=== PATIENT | male | born 1995 | race Caucasian/White ===

== ENCOUNTER 2017-04-25 21:30 | Emergency (ER) | payer BC ==
[~2017-04-25] VITALS: Ht 190.5 cm; Wt 118.3 kg
[2017-04-25 21:46] VITALS: TEMP 38.3; Ht 190.5 cm; Wt 118.3 kg
[2017-04-25] MEDS ORDERED: KETOROLAC TROMETHAMINE 30 MG/ML VIAL IV STA (23:03)
[2017-04-25] MEDS ORDERED: ACETAMINOPHEN IV 1,000 MG in EMPTY BAG 0 ML IV ONE (23:15)
[2017-04-25] MEDS ORDERED: ALBUT/IPRATROP 3MG/0.5MG NEB 3 ML VIAL INH ONE (23:15)
[2017-04-25] MEDS ORDERED: SODIUM CHLORIDE 0.9% 1000ML 1,000 ML IV ONE (23:15)
[2017-04-25] MEDS ORDERED: ACETAMINOPHEN 1000 MG/100 ML IV IV ONE (23:17)
[2017-04-25 23:41] LABS: BASO % 0.7 %; BASO ABS # 0.04 K/uL (0-0.2); EOS % 0.9 %; EOS ABS # 0.05 K/uL (0-0.5); HEMOGLOBIN 14.7 g/dL (14.0-18.0); IG# 0.01 K/uL (0.00-0.02); LYMPH % 16.8 %; LYMPH ABS # 0.97 K/uL (1.2-3.4); MEAN CELL VOLUME 86.1 fL (80-100); MEAN CORPUSCULAR HEMOGLOBIN 28.8 pg (25-34); MEAN CORPUSCULAR HGB CONC 33.4 g/dl (32-36); MONO % 15.4 %; MONO ABS # 0.89 K/uL (0.11-0.59); NEUT ABS # 3.81 K/uL (1.4-6.5); PLATELET COUNT 221 K/uL (130-400); WHITE BLOOD COUNT 5.77 K/uL (4.8-10.8)
[2017-04-25 23:48] LABS: ALBUMIN 4.1 gm/dl (3.4-5.0); CALCIUM 9.5 mg/dl (8.5-10.1); CREATININE 1.24 mg/dl (0.60-1.40); POTASSIUM 3.8 mmol/L (3.5-5.1)
[2017-04-25 23:51] LABS: TOTAL PROTEIN 7.9 gm/dl (6.4-8.2)
[2017-04-26 00:07] LABS: INFLUENZA B ANTIGEN Neg for Influ B (NEG)
[2017-04-26] MEDS ORDERED: OSELTAMIVIR PHOSPHATE 75 MG CAP PO STA (00:20)
[2017-04-26] MEDS ORDERED: AMPH20CA3 PO (00:43)
[2017-04-26 02:01] VITALS: BP 122/70; PULSE 76; O2SAT 98
--- NOTE | 2017-04-26 06:50 | DIAGNOSTIC IMAGING REPORT ---
CHEST 2 VIEWS ROUTINE CLINICAL HISTORY: Fever, cough, flulike symptoms COMPARISON STUDY: No previous studies for comparison. FINDINGS: The cardiac and mediastinal contours are normal. There is no evidence of focal pulmonary consolidation. There is no evidence of failure. No pleural effusions are visualized.[ IMPRESSION: No active disease in the chest. Electronically signed by: Alex Rodriguez M.D. 04/26/2017 6:49 AM Dictated Date/Time: 04/26/2017 6:49 AM
--- NOTE | 2017-04-27 05:23 | EMERGENCY ROOM VISIT NOTE ---
History First contact with patient: 22:54 Chief Complaint: FLU LIKE SX Stated Complaint: TROUBLE BREATHING, FLU SYMPTOMS, CHEST PAIN History of Present Illness The patient is a 22 year old male who presents to the Emergency Room with complaints of fever, cough, and difficulty breathing that started roughly 2 days ago. Patient does not have known exposure to disease. He considers himself otherwise usually healthy. He has been eating and drinking as normal. He rates his discomfort a 6/10 that does not improve much with [id number] analgesics. Review of Systems More than 10 systems were reviewed and otherwise negative with the exception of history of present illness. Past Medical/Surgical History No chronic medical disease Family History No pertinent family history Social History Smoking Status: Current Some Day Smoker Current/Historical Medications Scheduled Amphetamine-Dextroamphetamine 20MG (Adderall Xr 20MG), 20 MG PO QAM Physical Exam Vital Signs Date Time Temp Pulse Resp B/P (MAP) Pulse Ox O2 Delivery O2 Flow Rate FiO2 04/26/17 02:01 76 16 122/70 98 04/25/17 23:50 90 18 130/79 94 Room Air 04/25/17 21:46 38.3 115 20 130/85 97 Room Air Physical Exam VITALS: Vitals are noted on the nurse's note and reviewed by myself. Vital signs stable. GENERAL: Ill-appearing male who is cooperative with the examination. HEAD: Normocephalic atraumatic. EARS: External ear normal. External auditory canals clear, tympanic membranes pearly calderon without erythema or effusion bilaterally. EYES: Pupils equal round and reactive to light and accommodation. Conjunctivae without injection, sclerae without icterus. Extraocular movements intact. NOSE: Patent, turbinates without inflammation or discharge. MOUTH: Mucous membranes moist. Tonsils are not enlarged. Pharynx without erythema, blood, or exudate. Uvula midline. Airway patent. NECK: Supple without nuchal rigidity. No lymphadenopathy. No thyromegaly. Cervical spine is nontender. HEART: Regular rate and rhythm without murmurs gallops or rubs. LUNGS: Clear to auscultation bilaterally without wheezes, rales or rhonchi. No retractions or accessory muscle use. ABDOMEN: Positive normal bowel sounds x 4. Soft, nontender, without masses or organomegaly. No guarding or rebound tenderness. Medical Decision & Procedures ER Provider Diagnostic Interpretation: CHEST 2 VIEWS ROUTINE CLINICAL HISTORY: Fever, cough, flulike symptoms COMPARISON STUDY: No previous studies for comparison. FINDINGS: The cardiac and mediastinal contours are normal. There is no evidence of focal pulmonary consolidation. There is no evidence of failure. No pleural effusions are visualized.[ IMPRESSION: No active disease in the chest. Laboratory Results 04/25/17 23:10 Red Blood Count 5.11, Mean Corpuscular Volume 86.1, Mean Corpuscular Hemoglobin 28.8, Mean Corpuscular Hemoglobin Concent 33.4, Neutrophils (%) (Auto) 66.0, Lymphocytes (%) (Auto) 16.8, Monocytes (%) (Auto) 15.4, Eosinophils (%) (Auto) 0.9, Basophils (%) (Auto) 0.7, Neutrophils # (Auto) 3.81, Lymphocytes # (Auto) 0.97, Monocytes # (Auto) 0.89, Eosinophils # (Auto) 0.05, Basophils # (Auto) 0.04 04/25/17 23:10 Test 04/25/17 23:10 White Blood Count 5.77 K/uL (4.8-10.8) Red Blood Count 5.11 M/uL (4.7-6.1) Hemoglobin 14.7 g/dL (14.0-18.0) Hematocrit 44.0 % (42-52) Mean Corpuscular Volume 86.1 fL (80-100) Mean Corpuscular Hemoglobin 28.8 pg (25-34) Mean Corpuscular Hemoglobin Concent 33.4 g/dl (32-36) Platelet Count 221 K/uL (130-400) Neutrophils (%) (Auto) 66.0 % Lymphocytes (%) (Auto) 16.8 % Monocytes (%) (Auto) 15.4 % Eosinophils (%) (Auto) 0.9 % Basophils (%) (Auto) 0.7 % Neutrophils # (Auto) 3.81 K/uL (1.4-6.5) Lymphocytes # (Auto) 0.97 K/uL (1.2-3.4) Monocytes # (Auto) 0.89 K/uL (0.11-0.59) Eosinophils # (Auto) 0.05 K/uL (0-0.5) Basophils # (Auto) 0.04 K/uL (0-0.2) Immature Granulocyte % (Auto) 0.2 % Immature Granulocyte # (Auto) 0.01 K/uL (0.00-0.02) Anion Gap 8.0 mmol/L (3-11) Est Creatinine Clear Calc Drug Dose 128.5 ml/min Estimated GFR () 94.4 Estimated GFR (Non- 81.4 BUN/Creatinine Ratio 10.2 (10-20) Calcium Level 9.5 mg/dl (8.5-10.1) Total Bilirubin 0.7 mg/dl (0.2-1) Aspartate Amino Transf (AST/SGOT) 25 U/L (15-37) Alanine Aminotransferase (ALT/SGPT) 56 U/L (12-78) Alkaline Phosphatase 73 U/L (45-117) Total Protein 7.9 gm/dl (6.4-8.2) Albumin 4.1 gm/dl (3.4-5.0) Globulin 3.8 gm/dl (2.5-4.0) Albumin/Globulin Ratio 1.1 (0.9-2) Influenza Type A Antigen POS for Influ A (NEG) Influenza Type B Antigen Neg for Influ B (NEG) Medications Administered Medications (Trade) Dose Ordered Sig/Kayla Route Start Time Stop Time Status Last Admin Dose Admin Sodium Chloride 1,000 ml @ 999 mls/hr Q1H1M ONCE IV 04/25/17 23:15 04/26/17 00:15 DC 04/25/17 23:15 999 MLS/HR Ketorolac Tromethamine (Toradol Inj) 30 mg NOW STAT IV 04/25/17 23:03 04/25/17 23:06 DC 04/25/17 23:23 30 MG Albuterol/ Ipratropium (Duoneb) 3 ml NOW ONCE INH 04/25/17 23:15 04/25/17 23:16 DC 04/25/17 23:23 3 ML Acetaminophen (Ofirmev Iv) 1,000 mg STK-MED ONCE IV 04/25/17 23:17 04/25/17 23:18 DC 04/25/17 23:24 1,000 MG Oseltamivir Phosphate (Tamiflu Cap) 75 mg NOW STAT PO 04/26/17 00:20 04/26/17 00:21 DC 04/26/17 00:25 75 MG ED Course Physical exam and history were performed. Nursing notes, EMR, and Medication List were personally reviewed. Patient appears to have flulike symptoms for the past one to 2 days. He does appear ill on examination and is with a fever. IV access was established and labs were obtained here the patient was hydrated and medicated as above. The patient does not have a significant elevated white blood cell count, or gross anemia, bandemia, or significant electrolyte imbalance. X-ray was obtained and reviewed by myself and radiology as showing no acute findings. The patient's influenza swab was positive for influenza A. Clinically this does correlate with the patient's symptoms. He was given Tamiflu. Overall the patient appears well for discharge home. His temperature did improve and he felt much better after medication. He will be continued on pain. He is to follow with his primary care physician with any ongoing or persistent symptoms. The chart was completed utilizing [employer] Speech Voice Recognition Software. Grammatical errors, random word insertions, pronoun errors, and incomplete sentences are an occasional consequence of this system due to software limitations, ambient noise, and hardware issues. Any formal questions or concerns about the content, text, or information contained within the body of this dictation should be directly addressed to the provider for clarification. . Medical Decision Differential diagnosis: Etiologies such as viral syndrome, otitis, pharyngitis, pneumonia, influenza, meningitis, urinary tract infection, sepsis, bacteremia, as well as others were entertained. Impression Primary Impression: Influenza A Departure Information Dispostion Home / Self-Care Condition GOOD Forms HOME CARE DOCUMENTATION FORM, IMPORTANT VISIT INFORMATION Patient Instructions My [facility], ED Flu Additional Instructions You were seen and evaluated today on an emergency basis only. This is not a substitute for, or an effort to provide, complete comprehensive medical care. It is not possible to recognize and treat all injuries or illnesses in a single emergency department visit. For this reason it is recommended that you followup with [facility] or your primary care physician with any ongoing or persistent symptoms. Take Tamiflu twice daily as prescribed For baseline pain relief you may alternate ibuprofen and acetaminophen every 4 hours for pain control. Take 600 mg ibuprofen (Advil) and then 4 hours later take 1000 mg acetaminophen (Tylenol). Do not take more than 3000 mg acetaminophen in a single day. You are welcome to return to the emergency department anytime with new, worsening, or concerning symptoms.
== END 2017-04-26 02:01 | disposition home or self-care (01) ==
LOC: C.EDB 21:32
DX: J11.1 Influenza due to unidentified influenza virus with other respiratory manifestations (principal); F17.200 Nicotine dependence, unspecified, uncomplicated